=== PATIENT | female | born 1955 | race Caucasian/White ===

== ENCOUNTER 2016-12-30 08:33 | Day surgery (SDC) | payer OTHER ==
[2016-12-30] MEDS ORDERED: MIDAZOLAM HCL 2MG/2ML VIAL IV ONE (14:43)
[2016-12-30] MEDS ORDERED: PROPOFOL 10 MG/ML VIAL IV ONE (14:43)
[2016-12-30] MEDS ORDERED: LIDOCAINE 2% MDV (20MG/ML) 20ML VIAL IV ONE (14:43)
--- NOTE | 2017-01-04 16:22 | Operative Note ---
DATE OF SURGERY: 12/30/2016 REQUESTING PHYSICIAN: Dr. Iris Stallings POSTOPERATIVE DIAGNOSES: 1. Severe left sided diverticulosis. 2. A 6 mm sessile polyp in the descending colon that was removed by cold snare. 3. A 3 mm sessile polyp in the sigmoid colon that was removed by cold biopsy forceps. 4. Two 6 to 8 mm sessile polyps in the rectum, they were removed by cold snare with an adjacent 12 mm sessile polyp that was removed by snare cautery. 5. Poor bowel preparation. OPERATION: COLONOSCOPY. INDICATIONS: This is 52-year-old female with history of colon polyps who presented for surveillance colonoscopy. ANESTHESIA: Sedation is per Anesthesia. Pulse oximetry was monitored throughout the procedure to maintain O2 saturation of 90% or greater. Supplemental oxygen was administered via nasal cannula. Cardiac and vital signs were monitored throughout the duration of the procedure and they were stable. The standard procedure of colonoscopy and risks and benefits of the procedure, including the risk of bleeding and perforation, among others, were explained to the patient who voiced understanding and desired to have the procedures done. Physical examination was performed and the patient was found stable for sedation. PROCEDURE: The patient was placed in the left lateral position. Sedation was initiated. A digital rectal exam was performed and showed some mild external hemorrhoids with no palpable rectal masses. An Olympus PCF-180AL colonoscope was then inserted into the rectum under direct visualization. It was advanced to the cecum without difficulty. The The ileocecal valve and appendiceal orifice were identified and photographed. The colonic mucosa was carefully examined upon introduction of the colonoscope. The bowel preparation was suboptimal with debris in the sigmoid and descending as well as the ascending colon. In the sigmoid and descending colon were severe diverticular disease that was noted. There were no other lesions noted. Upon withdrawal of the colonoscope the colonic mucosa was carefully examined. In the cecum, ascending colon, and transverse colon revealed no lesions. In the descending colon was a 6 mm sessile polyp that was removed by cold snare. In the sigmoid colon was a 3 mm sessile polyp that was removed by cold biopsy forceps. The colonoscope was then withdrawn into the rectum and two 6 to 8 mm sessile polyps they were removed by cold snare. There was an adjacent 12 mm sessile polyp that was also removed by snare cautery in a piecemeal fashion. There were no immediate complications. In the rectum, retroflexion manuever was performed and there were no other lesions in it. The colonoscope was then withdrawn and the procedures were terminated. The patient tolerated the procedure well without any immediate complications. He remained with stable vital signs and was transferred to the recovery room. RECOMMENDATIONS: 1. He is to stay on a low for 2 weeks and thereafter be on a high fiber diet. 2. He is to avoid any aspirin or NSAID medications. 3. He is to have a repeat colonoscopy for surveillance in 3 years or earlier depending on severity of progress. As always, thank you for allowing me to participate in the care of your patient. Brett Sims MD CC: Dr. Carlos Sims MD [facility]
== END 2016-12-30 10:56 | disposition home or self-care (01) ==
LOC: HOP 08:33
PROVIDERS: ATTEND Internal Medicine Gastroenterology
DX: Z12.11 Encounter for screening for malignant neoplasm of colon (principal); K63.5 Polyp of colon; K62.1 Rectal polyp; I10 Essential (primary) hypertension; F17.200 Nicotine dependence, unspecified, uncomplicated

== ENCOUNTER 2017-02-09 11:03 | Emergency (ER) | payer OTHER ==
[2017-02-09] MEDS ORDERED: PROMETHAZINE HCL 25 MG/ML VIAL IV ONE (11:38)
[2017-02-09] MEDS ORDERED: 0.9 % SODIUM CHLORIDE 1,000 ML BAG IV ONE (11:38)
[2017-02-09] MEDS ORDERED: HYDROMORPHONE HCL 1MG/ML **SYRINGE IVP ONE ×2 (11:41→15:10)
[2017-02-09 11:58] LABS: BASO % 0.2 % (0-6); EOS % 0.3 % (0-6); GRAN % 78.5 % (47-80); HEMOGLOBIN 13.6 gm/dl (11.6-16.0); LYMPH % 9.1 % (16-45); MEAN CELL VOLUME 97.3 fl (81-97); MEAN CORPUSCULAR HEMOGLOBIN 33.9 pg (27-33); MEAN CORPUSCULAR HGB CONC 34.9 g/dl (32-36); MEAN PLATELET VOLUME 8.7 fl (7.4-10.4); MONO % 11.9 % (0-9); PLATELET COUNT 322 K/uL (130-400); RED BLOOD COUNT 4.01 M/uL (3.80-5.40); RED CELL DISTRIBUTION WIDTH 11.7 % (11.5-14.5); WHITE BLOOD COUNT W/O DIFF 12.3 K/uL (4.2-12.2)
[2017-02-09 12:08] LABS: ALB/GLOB RATIO 1.1 (1.1-1.8); ALBUMIN 4.4 gm/dL (3.5-5.0); ALKALINE PHOSPHATASE 71 U/L (38-126); ALT/SGPT 22 U/L (9-52); ANION GAP 12.8 (7-16); AST/SGOT 22 U/L (14-36); BILIRUBIN,TOTAL 1.09 mg/dL (0.2-1.3); BLOOD UREA NITROGEN 15 mg/dL (7-17); CARBON DIOXIDE 24.2 mmol/L (22-30); CREATININE 0.9 mg/dL (0.52-1.04); EST GLOMERULAR FILTRATION RATE > 60 ml/min; GLUCOSE,RANDOM 114 mg/dL (70-110); LIPASE 129 U/L (23-300); TOTAL PROTEIN 8.5 gm/dL (6.3-8.2)
[2017-02-09 12:48] LABS: URINE APPEARANCE CLEAR; URINE BILIRUBIN NEGATIVE (NEGATIVE); URINE BLOOD MODERATE (NEGATIVE); URINE COLOR YELLOW; URINE GLUCOSE (UA) NEGATIVE (NEGATIVE); URINE KETONE NEGATIVE (NEGATIVE); URINE LEUKOCYTE ESTERASE NEGATIVE (NEGATIVE); URINE NITRITE NEGATIVE (NEGATIVE); URINE PROTEIN NEGATIVE (NEGATIVE); URINE UROBILINOGEN 0.2 E.U./dL (0.20 - 1.00)
[2017-02-09 12:56] LABS: URINE WBC NONE SEEN (0-2/hpf)
--- NOTE | 2017-02-09 13:13 | Emergency Department Record ---
History of Present Illness - General Chief Complaint: Abdominal Pain Stated Complaint: ABD PAIN Time Seen by Provider: 02/09/17 11:27 Source: Patient Mode of Arrival: Ambulatory Limitations: No limitations - History of Present Illness Initial Comments: pt has had n/c and constant ap and intermittant cramps. Complaint: Abdominal pain Onset/Timin -: Days(s) Location: LUQ, RUQ Radiation: Back, L flank, R flank Severity: Moderate Quality: Cramping, Stabbing Consistency: Constant Improves With: Nothing Worsens With: Movement Associated Symptoms: Chills, Nausea - Related Data Patient : No Hx Age of Menopause: 49 Home Medications Medication Instructions Recorded Confirmed Last Taken Amlodipine Besylate [Norvasc] 5 mg PO DAILY 02/09/17 02/09/17 02/09/17 Losartan Potassium 100 mg PO DAILY 02/09/17 02/09/17 02/09/17 Allergies Allergy/AdvReac Type Severity Reaction Status Date / Time metal Allergy RASH Uncoded 02/09/17 11:26 Travel Screening - Travel/Exposure Within Last 30 Days Have you traveled within the last 30 days?: No - Travel/Exposure Within Last Year Have you traveled outside the [place] in the last year?: No - Additonal Travel Details Have you been exposed to anyone with a communicable illness?: No - Travel Symptoms Symptom Screening: None Review of Systems Reviewed: No additional complaints except as noted below Constitutional: Reports: As per HPI. Denies: Chills, Fever, Malaise, Night sweats, Weakness, Weight change Eyes: Reports: As per HPI. Denies: Eye discharge, Eye pain, Photophobia, Vision change ENT: Reports: As per HPI. Denies: Congestion, Dental pain, Ear pain, Epistaxis , Hearing loss, Throat pain Respiratory: Reports: As per HPI. Denies: Cough, Dyspnea, Hemoptysis, Stridor, Wheezes Cardiovascular: Reports: As per HPI. Denies: Arrhythmia, Chest pain, Dyspnea on exertion, Edema, Murmurs, Orthopnea, Palpitations, Paroxysmal nocturnal dyspnea, Rheumatic Fever, Syncope Endocrine: Reports: As per HPI. Denies: Fatigue, Heat or cold intolerance, Polydipsia, Polyuria Gastrointestinal: Reports: As per HPI. Denies: Abdominal pain, Constipation, Diarrhea, Hematemesis, Hematochezia, Melena, Nausea, Vomiting Genitourinary: Reports: As per HPI. Denies: Abnormal menses, Discharge, Dyspareunia, Dysuria, Frequency, Hematuria, Incontinence, Retention, Urgency Musculoskeletal: Reports: As per HPI. Denies: Arthralgia, Back pain, Gout, Joint swelling, Myalgia, Neck pain Skin: Reports: As per HPI. Denies: Bruising, Change in color, Change in hair/ nails, Lesions, Pruritus, Rash Neurological: Reports: As per HPI. Denies: Abnormal gait, Confusion, Headache, Numbness, Paresthesias, Seizure, Tingling, Tremors, Vertigo, Weakness Psychiatric: Reports: As per HPI. Denies: Anxiety, Auditory hallucinations, Depression, Homicidal thoughts, Suicidal thoughts, Visual hallucinations Hematological/Lymphatic: Reports: As per HPI. Denies: Anemia, Blood Clots, Easy bleeding, Easy bruising, Swollen glands Past Medical History - SOCIAL HISTORY Smoking Status: Current every day smoker Alcohol Use: Occasional Drug Use: None - RESPIRATORY Hx Respiratory Disorders: No - CARDIOVASCULAR Hx Cardio Disorders: Yes Hx Hypertension: Yes - NEURO Hx Neuro Disorders: No - GI Hx GI Disorders: Yes Hx Hiatal Hernia: Yes - Hx Genitourinary Disorders: No - ENDOCRINE Hx Endocrine Disorders: No - MUSCULOSKELETAL Hx Musculoskeletal Disorders: No - PSYCH Hx Psych Problems: No - HEMATOLOGY/ONCOLOGY Hx Hematology/Oncology Disorders: No Family Medical History Any Significant Family History?: No Physical Exam - General General Appearance: Alert, Oriented x3, Cooperative, Mild distress - Head Head exam: Normal inspection - Eye Eye exam: Normal appearance, PERRL Pupils: Normal accommodation - ENT ENT exam: Normal exam, Mucous membranes moist, Normal external ear exam, Normal orophraynx Ear exam: Normal external inspection. negative: External canal tenderness Nasal Exam: Normal inspection. negative: Discharge, Sinus tenderness Mouth exam: Normal external inspection, Tongue normal Teeth exam: Normal inspection. negative: Dental caries Throat exam: Normal inspection. negative: Tonsillar erythema, Tonsillar exudate - Neck Neck exam: Normal inspection, Full ROM. negative: Tenderness - Respiratory Respiratory exam: Normal lung sounds bilaterally. negative: Respiratory distress - Cardiovascular Cardiovascular Exam: Regular rate, Normal rhythm, Normal heart sounds - GI/Abdominal GI/Abdominal exam: Soft, Normal bowel sounds, Distended, Tenderness - Rectal Rectal exam: Deferred - exam: Deferred - Extremities Extremities exam: Normal inspection, Full ROM, Normal capillary refill. negative: Tenderness - Back Back exam: Reports: Normal inspection, Full ROM. Denies: Muscle spasm, Rash noted, Tenderness - Neurological Neurological exam: Alert, CN II-XII intact, Normal gait, Oriented X3 - Psychiatric Psychiatric exam: Normal affect, Normal mood - Skin Skin exam: Dry, Intact, Normal color, Warm Course Vital Signs 02/09/17 02/09/17 11:04 11:58 Temperature 98.3 F Pulse Rate 97 H Pulse Rate [ 96 H Pulse Ox Probe] Respiratory 18 16 Rate Blood Pressure 159/100 Blood Pressure 171/94 [Right Thigh] Pulse Ox 99 97 - Reevaluation(s) Reevaluation #1: 02/09/17 16:27 d/w dr braden Medical Decision Making - Lab Data Result diagrams: 02/09/17 11:38 02/09/17 11:38 Lab Results 02/09/17 02/09/17 02/09/17 Range/Units 11:38 11:38 12:40 WBC 12.3 H (4.2-12.2) K/uL RBC 4.01 (3.80-5.40) M/uL Hgb 13.6 (11.6-16.0) gm/dl Hct 39.0 (35.0-47.0) % MCV 97.3 H (81-97) fl MCH 33.9 H (27-33) pg MCHC 34.9 (32-36) g/dl RDW 11.7 (11.5-14.5) % Plt Count 322 (130-400) K/uL MPV 8.7 (7.4-10.4) fl Gran % 78.5 (47-80) % Lymphocytes % 9.1 L (16-45) % Monocytes % 11.9 H (0-9) % Eosinophils % 0.3 (0-6) % Basophils % 0.2 (0-6) % Sodium 130 L (136-145) mmol/L Potassium 4.4 (3.5-5.1) mmol/L Chloride 93 L (98-107) mmol/L Carbon Dioxide 24.2 (22-30) mmol/L Anion Gap 12.8 (7-16) BUN 15 (7-17) mg/dL Creatinine 0.9 (0.52-1.04) mg/dL Estimated GFR > 60 ml/min Random Glucose 114 H (70-110) mg/dL Lactic Acid (0.7-2.1) mmol/L Calcium 10.2 H (8.5-10.1) mg/dL Total Bilirubin 1.09 (0.2-1.3) mg/dL AST 22 (14-36) U/L ALT 22 (9-52) U/L Alkaline Phosphatase 71 (38-126) U/L Total Protein 8.5 H (6.3-8.2) gm/dL Albumin 4.4 (3.5-5.0) gm/dL Globulin 4.1 (1.4-4.8) gm/dL Albumin/Globulin Ratio 1.1 (1.1-1.8) Lipase 129 (23-300) U/L Urine Color Yellow Urine Appearance Clear Urine pH 6.0 (5.0-8.0) Ur Specific [place] <= 1.005 (1.002-1.030) Urine Protein Negative (NEGATIVE) Urine Glucose (UA) Negative (NEGATIVE) Urine Ketones Negative (NEGATIVE) Urine Blood Moderate (NEGATIVE) Urine Nitrite Negative (NEGATIVE) Urine Bilirubin Negative (NEGATIVE) Urine Urobilinogen 0.2 (0.20 - 1.00) E.U./dL Ur Leukocyte Esterase Negative (NEGATIVE) Urine RBC 7 - 10 (NONE SEEN) Urine WBC None seen (0-2/hpf) Ur Epithelial Cells 3 - 6 (FEW) 02/09/ Range/Units 12:40 WBC (4.2-12.2) K/uL RBC (3.80-5.40) M/uL Hgb (11.6-16.0) gm/dl Hct (35.0-47.0) % MCV (81-97) fl MCH (27-33) pg MCHC (32-36) g/dl RDW (11.5-14.5) % Plt Count (130-400) K/uL MPV (7.4-10.4) fl Gran % (47-80) % Lymphocytes % (16-45) % Monocytes % (0-9) % Eosinophils % (0-6) % Basophils % (0-6) % Sodium (136-145) mmol/L Potassium (3.5-5.1) mmol/L Chloride (98-107) mmol/L Carbon Dioxide (22-30) mmol/L Anion Gap (7-16) BUN (7-17) mg/dL Creatinine (0.52-1.04) mg/dL Estimated GFR ml/min Random Glucose (70-110) mg/dL Lactic Acid 1.2 (0.7-2.1) mmol/L Calcium (8.5-10.1) mg/dL Total Bilirubin (0.2-1.3) mg/dL AST (14-36) U/L ALT (9-52) U/L Alkaline Phosphatase (38-126) U/L Total Protein (6.3-8.2) gm/dL Albumin (3.5-5.0) gm/dL Globulin (1.4-4.8) gm/dL Albumin/Globulin Ratio (1.1-1.8) Lipase (23-300) U/L Urine Color Urine Appearance Urine pH (5.0-8.0) Ur Specific [place] (1.002-1.030) Urine Protein (NEGATIVE) Urine Glucose (UA) (NEGATIVE) Urine Ketones (NEGATIVE) Urine Blood (NEGATIVE) Urine Nitrite (NEGATIVE) Urine Bilirubin (NEGATIVE) Urine Urobilinogen (0.20 - 1.00) E.U./dL Ur Leukocyte Esterase (NEGATIVE) Urine RBC (NONE SEEN) Urine WBC (0-2/hpf) Ur Epithelial Cells (FEW) Disposition Disposition: Transfer Clinical Impression: Diverticulitis of large intestine with abscess Qualifiers: Diverticulitis bleeding: without bleeding Qualified Code(s): K57.20 - Diverticulitis of large intestine with perforation and abscess without bleeding Disposition: Acute Care Hospital Transfer Transfer To: [facility] Reason For Transfer: needs surgeon Accepting Physician: dr braden Time Discussed w/Accepting Physician: 16:05 Forms: Patient Portal Access Quality - Quality Measures Quality Measures: N/A - Blood Pressure Screening Does Patient Have Any of the Following: Active Dx of HTN Blood Pressure Classification: Hypertensive Reading Systolic Measurement: 159 Diastolic Measurement: 100 Screening for High Blood Pressure: Patient Exclusion, Hx of HTN [G9744]
[2017-02-09] MEDS ORDERED: CIPROFLOXACIN LACTATE/D5W 400 MG/200 ML BAG IVPB ONE (14:55)
[2017-02-09] MEDS ORDERED: METRONIDAZOLE IVPB 500 MG/100 ML BAG IVPB ONE (14:56)
--- NOTE | 2017-02-10 09:43 | CT SCAN REPORT ---
EXAM: CT SCAN OF THE ABDOMEN AND PELVIS HISTORY: PATIENT HAS ABDOMINAL PAIN AND CRAMPING. TECHNIQUE: Serial axial CT scan of the abdomen and pelvis was performed at 3.75 mm intervals from the dome of the diaphragm down to the pubic symphysis following the intravenous and oral administration of contrast. No comparison CT's are available. FINDINGS: Lung windows of the lung bases demonstrate no CT evidence of a focal infiltrate or pleural effusion. The visualized heart size and contour is within normal limits. The liver, spleen, pancreas, bilateral adrenal glands, and gallbladder are unremarkable. There is no CT evidence of hydronephrosis or hydroureter. No renal or ureteral calculi are noted. The contour, caliber and flow within the abdominal aorta is within normal limits. There is no CT evidence of retroperitoneal, pelvic, or inguinal lymphadenopathy. There is significant pericolonic fat stranding surrounding the sigmoid colon. Numerous colonic diverticula are identified. These findings are suspicious for acute diverticulitis. In addition, there is a 4.7 cm x 2.8 cm focus of decreased attenuation surrounding this area of inflammation around the proximal sigmoid colon. This findings is suspicious for a peridiverticular abscess. This abscess appears contained. No obvious free intraperitoneal air is noted. The urinary bladder and uterus appear unremarkable. Bone windows demonstrate advanced degenerative disk disease of the lower lumbar spine. IMPRESSION: FINDINGS CONSISTENT WITH ACUTE DIVERTICULITIS WITH PERIDIVERTICULAR ABSCESS DISCUSSED ABOVE. THIS ABSCESS APPEARS CONTAINED WITHOUT EVIDENCE OF FREE INTRAPERITONEAL AIR. JOB NUMBER: [id number] [facility]
== END 2017-02-09 17:45 | disposition short-term general hospital (02) ==
LOC: ER 11:03
DX: K57.20 Diverticulitis of large intestine with perforation and abscess without bleeding (principal); R11.0 Nausea; I10 Essential (primary) hypertension; F17.210 Nicotine dependence, cigarettes, uncomplicated
CPT/HCPCS: 74177; 80053; 81001; 83605; 83690; 85025; 96365; 96366; 96367; 96375; 96376; 99285; J1170; J2550; J7030

== ENCOUNTER 2017-03-04 09:32 | Emergency (ER) | payer OTHER ==
--- NOTE | 2017-03-04 09:55 | Emergency Department Record ---
History of Present Illness - General Chief complaint: Extremity Problem Stated complaint: RT SHOULDER/ARM PAIN Time Seen by Provider: 03/04/17 09:45 Source: Patient Mode of Arrival: Ambulatory Limitations: No limitations - History of Present Illness Initial comments: The patient is here due to R shoulder pain since last night. She was bending over to grab something and she fell directly onto the R shoulder. Since she has had significant pain to the area. There is no reported numbness or tingling to the arm. She denies hitting her head or any LOC or neck pain. MD Complaint: Extremity pain Onset/Timin -: Hour(s) Location: Right, Arm, Shoulder History of Same: No Radiation: Proximal Severity scale (1-10): 10 Quality: Aching Consistency: Constant Improves with: Nothing Worsens with: Nothing Associated Symptoms: Denies other symptoms - Related Data Previous Rx's Medication Instructions Recorded Hydrocodone/Acetaminophen [[place] 1 - 2 each PO QID #20 tablet 03/04/17 5-325 Tablet] Allergies Allergy/AdvReac Type Severity Reaction Status Date / Time metal Allergy RASH Uncoded 03/04/17 09:40 Travel Screening - Travel/Exposure Within Last 30 Days Have you traveled within the last 30 days?: No Review of Systems Constitutional: Denies: Chills, Fever Eyes: Denies: Eye discharge ENT: Denies: Congestion Respiratory: Denies: Cough, Dyspnea Past Medical History - SOCIAL HISTORY Smoking Status: Current every day smoker Alcohol Use: None Drug Use: None - RESPIRATORY Hx Respiratory Disorders: No - CARDIOVASCULAR Hx Cardio Disorders: Yes Hx Hypertension: Yes - NEURO Hx Neuro Disorders: No - GI Hx GI Disorders: Yes Hx Hiatal Hernia: Yes - Hx Genitourinary Disorders: No - ENDOCRINE Hx Endocrine Disorders: No - MUSCULOSKELETAL Hx Musculoskeletal Disorders: No - PSYCH Hx Psych Problems: No - HEMATOLOGY/ONCOLOGY Hx Hematology/Oncology Disorders: No Family Medical History Any Significant Family History?: No Physical Exam - General General Appearance: Alert, Oriented x3, Cooperative, No acute distress - Head Head exam: Atraumatic, Normocephalic, Normal inspection - Eye Eye exam: Normal appearance, PERRL - Neck Neck exam: Normal inspection, Full ROM. negative: Tenderness - Respiratory Respiratory exam: Normal lung sounds bilaterally, Chest wall tenderness (mildly to the R 6-7th rib area.). negative: Respiratory distress, Rhonchi, Stridor, Wheezes - Cardiovascular Cardiovascular Exam: Regular rate, Normal rhythm, Normal heart sounds - GI/Abdominal GI/Abdominal exam: Soft, Normal bowel sounds. negative: Tenderness - Extremities Extremities exam: Joint swelling (R shoulder.), Normal capillary refill, Tenderness (to the R shoulder diffusely.), Other (The R arm and hand are NVI with normal pulses.). negative: Normal inspection (There is significant swelling to the R shoulder.), Full ROM (due to R shoulder pain.) Course Vital Signs 03/04/17 09:41 Temperature 98.3 F Pulse Rate 82 Respiratory 20 Rate Blood Pressure 153/108 Pulse Ox 98 - Reevaluation(s) Reevaluation #1: I did discuss the xrays with the patient and the need for F/U with Ortho. We will refer her to Dr. Thakur for further eval. 03/04/17 10:25 Reevaluation #2: The patient is doing a lot better now and is ready for home. 03/04/17 10:42 Medical Decision Making - Data Complexity MDM Data: X-Ray Ordered and/or Reviewed - Radiology Data Radiology results: Report reviewed (R shoulder: Comminuted impacted fx of surgical/humeral neck with no gross displacement. Poss. nondisplaced fx R 7th rib.) Disposition Disposition: Discharge Clinical Impression: Humeral head fracture Qualifiers: Encounter type: initial encounter Fracture type: closed Laterality: right Qualified Code(s): S42.291A - Other displaced fracture of upper end of right humerus, initial encounter for closed fracture Disposition: Home, Self-Care Condition: (1) Good Instructions: Scapular Fracture (ED) Additional Instructions: Please keep the R arm in the sling at all times. Use Tylenol or [place] for pain. Please see Dr. Thakur in the Specialty clinic later this week. Return to the ER for any problems or increased pain. Prescriptions: Hydrocodone/Acetaminophen [[place] 5-325 Tablet] 1 - 2 each PO QID #20 tablet Referrals: [facility] Specialty Clinics [Provider Group] YONATHAN THAKUR [DOCTOR OF OSTEOPATH] - Forms: Patient Portal Access Time of Disposition: 10:44 Quality - Quality Measures Quality Measures: N/A - Blood Pressure Screening View Details: Yes Does Patient Have Any of the Following: No Blood Pressure Classification: Hypertensive Reading Systolic Measurement: 177 Diastolic Measurement: 100 Screening for High Blood Pressure: < Pre-Hypertensive BP, F/U Documented > [ G8950] Pre-Hypertensive Follow-up Interventions: Referral to alternative/primary care provider.
[2017-03-04] MEDS: HYDROCODONE/APAP 5/325MG TABLET PO ONE (10:15)
[2017-03-04] MEDS: MORPHINE SULFATE 5 MG/ML PFS IM ONE (10:24)
--- NOTE | 2017-03-06 07:31 | RADIOLOGY REPORT ---
EXAM: RIGHT SHOULDER, THREE VIEWS HISTORY: PATIENT HAS HISTORY OF FALL. TECHNIQUE: Three views of the right shoulder are provided without comparison examinations. FINDINGS: There is a comminuted, impacted fracture of the right surgical humeral neck with approximately 2.8 mm lateral displacement of the distal fracture fragment. The fracture appears predominantly three part. No obvious fracture or dislocation of the osseous glenoid process is noted. Acromioclavicular hyperactivity is noted. There is a questionable moderate displaced fracture of the right anterior seventh rib. Clinical correlation is recommended. IMPRESSION: 1. COMMINUTED FRACTURE OF THE RIGHT SURGICAL HUMERAL NECK IS NOTED DESCRIBED. 2. NO OBVIOUS FRACTURE OF THE OSSEOUS GLENOID PROCESS IS NOTED. IF THERE IS FURTHER CLINICAL CONCERN THEN A CT SCAN OF THE RIGHT SHOULDER CAN BE OBTAINED FOR FURTHER EVALUATION. 3. THERE ARE FINDINGS SUSPICIOUS FOR A MINIMALLY DISPLACED FRACTURE OF THE RIGHT ANTERIOR SEVENTH RIB. JOB NUMBER: [id number] [facility]TDD
== END 2017-03-04 11:10 | disposition home or self-care (01) ==
LOC: ER 09:32
DX: S42.231A 3-part fracture of surgical neck of right humerus, initial encounter for closed fracture (principal); S22.31XA Fracture of one rib, right side, initial encounter for closed fracture; W01.0XXA Fall on same level from slipping, tripping and stumbling without subsequent striking against object, initial encounter
CPT/HCPCS: 99283; 96372; 99284; 73030; J2270

== ENCOUNTER 2018-05-20 10:35 | Emergency (ER) | payer OTHER ==
[2018-05-20] MEDS ORDERED: ASPIRIN 81 MG CHEWABLE TABLET PO ONE (10:48)
[2018-05-20] MEDS ORDERED: HEPARIN SODIUM 1000 UNIT/1 ML 10ML VIAL IVP ONE (10:52)
--- NOTE | 2018-05-20 10:56 | Emergency Department Record ---
History of Present Illness - General Chief Complaint: Chest Pain Stated Complaint: CHEST PAIN/CRYSTAL Time Seen by Provider: 05/20/18 10:48 Source: Patient Mode of Arrival: Ambulatory Limitations: No limitations - History of Present Illness Initial Comments: pt started having chest pain last night and it became severs at 4am. she has never had this before. Complaint: Chest pain Onset/Timin -: Hour(s) Onset: During rest Pain Location: Substernal Pain Radiation: Back Severity: Moderate Severity scale (1-10): 8 Quality: Aching, Heaviness Improves With: Nothing Worsens With: Nothing - Related Data Previous Rx's Medication Instructions Recorded Hydrocodone/Acetaminophen [[place] 1 - 2 each PO QID #20 tablet 03/04/17 5-325 Tablet] Allergies Allergy/AdvReac Type Severity Reaction Status Date / Time metal Allergy RASH Uncoded 05/20/18 10:44 Travel Screening - Travel/Exposure Within Last 30 Days Have you traveled within the last 30 days?: No - Travel/Exposure Within Last Year Have you traveled outside the [place] in the last year?: No - Additonal Travel Details Have you been exposed to anyone with a communicable illness?: No - Travel Symptoms Symptom Screening: None Review of Systems Reviewed: No additional complaints except as noted below Constitutional: Reports: As per HPI. Denies: Chills, Fever, Malaise, Night sweats, Weakness, Weight change Eyes: Reports: As per HPI. Denies: Eye discharge, Eye pain, Photophobia, Vision change ENT: Reports: As per HPI. Denies: Congestion, Dental pain, Ear pain, Epistaxis , Hearing loss, Throat pain Respiratory: Reports: As per HPI. Denies: Cough, Dyspnea, Hemoptysis, Stridor, Wheezes Cardiovascular: Reports: As per HPI. Denies: Arrhythmia, Chest pain, Dyspnea on exertion, Edema, Murmurs, Orthopnea, Palpitations, Paroxysmal nocturnal dyspnea, Rheumatic Fever, Syncope Endocrine: Reports: As per HPI. Denies: Fatigue, Heat or cold intolerance, Polydipsia, Polyuria Gastrointestinal: Reports: As per HPI. Denies: Abdominal pain, Constipation, Diarrhea, Hematemesis, Hematochezia, Melena, Nausea, Vomiting Genitourinary: Reports: As per HPI. Denies: Abnormal menses, Discharge, Dyspareunia, Dysuria, Frequency, Hematuria, Incontinence, Retention, Urgency Musculoskeletal: Reports: As per HPI. Denies: Arthralgia, Back pain, Gout, Joint swelling, Myalgia, Neck pain Skin: Reports: As per HPI. Denies: Bruising, Change in color, Change in hair/ nails, Lesions, Pruritus, Rash Neurological: Reports: As per HPI. Denies: Abnormal gait, Confusion, Headache, Numbness, Paresthesias, Seizure, Tingling, Tremors, Vertigo, Weakness Psychiatric: Reports: As per HPI. Denies: Anxiety, Auditory hallucinations, Depression, Homicidal thoughts, Suicidal thoughts, Visual hallucinations Hematological/Lymphatic: Reports: As per HPI. Denies: Anemia, Blood Clots, Easy bleeding, Easy bruising, Swollen glands Past Medical History - SOCIAL HISTORY Smoking Status: Current every day smoker Alcohol Use: None Drug Use: None - RESPIRATORY Hx Respiratory Disorders: No - CARDIOVASCULAR Hx Cardio Disorders: Yes Hx Hypertension: Yes - NEURO Hx Neuro Disorders: No - GI Hx GI Disorders: Yes Hx Hiatal Hernia: Yes - Hx Genitourinary Disorders: No - ENDOCRINE Hx Endocrine Disorders: No - MUSCULOSKELETAL Hx Musculoskeletal Disorders: No - PSYCH Hx Psych Problems: No - HEMATOLOGY/ONCOLOGY Hx Hematology/Oncology Disorders: No Family Medical History Any Significant Family History?: Yes Physical Exam - General General Appearance: Alert, Oriented x3, Cooperative, Moderate distress - Head Head exam: Normal inspection - Eye Eye exam: Normal appearance, PERRL, EOMI Pupils: Normal accommodation - ENT ENT exam: Normal exam, Mucous membranes moist, Normal external ear exam, Normal orophraynx Ear exam: Normal external inspection. negative: External canal tenderness Nasal Exam: Normal inspection. negative: Discharge, Sinus tenderness Mouth exam: Normal external inspection, Tongue normal Teeth exam: Normal inspection. negative: Dental caries Throat exam: Normal inspection. negative: Tonsillar erythema, Tonsillar exudate - Neck Neck exam: Normal inspection, Full ROM. negative: Tenderness - Respiratory Respiratory exam: Normal lung sounds bilaterally. negative: Respiratory distress - Cardiovascular Cardiovascular Exam: Regular rate, Normal rhythm, Normal heart sounds - GI/Abdominal GI/Abdominal exam: Soft, Normal bowel sounds. negative: Tenderness - Rectal Rectal exam: Deferred - exam: Deferred - Extremities Extremities exam: Normal inspection, Full ROM, Normal capillary refill. negative: Tenderness - Back Back exam: Reports: Normal inspection, Full ROM. Denies: Muscle spasm, Rash noted, Tenderness - Neurological Neurological exam: Alert, CN II-XII intact, Normal gait, Oriented X3 - Psychiatric Psychiatric exam: Normal affect, Normal mood - Skin Skin exam: Dry, Intact, Normal color, Warm Course Vital Signs 05/20/18 10:45 Pulse Rate [ 65 Pulse Ox Probe] Respiratory 20 Rate Blood Pressure 90/69 [Left Arm] Pulse Ox 100 - Reevaluation(s) Reevaluation #1: 05/20/18 10:56 dr lima says hold ntg Disposition Disposition: Transfer Clinical Impression: STEMI (ST elevation myocardial infarction) Qualifiers: Involved coronary artery: other inferior wall coronary artery Qualified Code(s) : I21.19 - ST elevation (STEMI) myocardial infarction involving other coronary artery of inferior wall Disposition: Acute Care Hospital Transfer Transfer To: [facility] Reason For Transfer: STEMI Accepting Physician: dr lima Time Discussed w/Accepting Physician: 10:55 Quality - Quality Measures Quality Measures: N/A - Blood Pressure Screening Does Patient Have Any of the Following: No Blood Pressure Classification: Normal BP Reading Systolic Measurement: 90 Diastolic Measurement: 69 Screening for High Blood Pressure: < Normal BP, F/U Not Required > [[id number]]
[2018-05-20] MEDS ORDERED: MORPHINE SULFATE 10 MG/ML VIAL IVP ONE (11:01)
[2018-05-20 11:03] LABS: BASO % 0.8 % (0-6); GRAN % 58.4 % (47-80); HEMATOCRIT 43.7 % (35.0-47.0); HEMOGLOBIN 14.5 gm/dl (11.6-16.0); LYMPH % 26.1 % (16-45); MEAN CELL VOLUME 101.2 fl (81-97); MEAN CORPUSCULAR HEMOGLOBIN 33.6 pg (27-33); MEAN CORPUSCULAR HGB CONC 33.2 g/dl (32-36); MEAN PLATELET VOLUME 8.9 fl (7.4-10.4); MONO % 11.7 % (0-9); PLATELET COUNT 277 K/uL (130-400); RED BLOOD COUNT 4.32 M/uL (3.80-5.40); RED CELL DISTRIBUTION WIDTH 12.7 % (11.5-14.5); WHITE BLOOD COUNT W/O DIFF 10.1 K/uL (4.2-12.2)
[2018-05-20] MEDS ORDERED: ONDANSETRON HCL IV 4 MG/2 ML VIAL IVP ONE (11:03)
[2018-05-20 11:15] LABS: BLOOD UREA NITROGEN 13 mg/dL (8-23); CREATINE PHOSPHOKINASE 62 U/L (26-192); CREATININE 0.9 mg/dL (0.5-0.9); EST GLOMERULAR FILTRATION RATE > 60 mL/min; GLUCOSE,RANDOM 123 mg/dL (74-109)
--- NOTE | 2018-05-21 14:13 | RADIOLOGY REPORT ---
EXAM: PORTABLE CHEST HISTORY: DIFFICULTY IN BREATHING. TECHNIQUE: A portable AP view of the chest was performed. FINDINGS: The heart size is normal. No infiltrate or pleural effusion. The osseous structures are normal. IMPRESSION: NEGATIVE CHEST EXAMINATION. JOB NUMBER: [id number] MTDD
== END 2018-05-20 11:08 | disposition short-term general hospital (02) ==
LOC: ER 10:35
DX: I21.19 ST elevation (STEMI) myocardial infarction involving other coronary artery of inferior wall (principal); R06.00 Dyspnea, unspecified; I10 Essential (primary) hypertension; F17.210 Nicotine dependence, cigarettes, uncomplicated
CPT/HCPCS: 99285 ×2; 96374; 96375; 82550; 85025; 80048; 84484; 85379; 71045; 93005; 93010; J2405; J2270